=== PATIENT | male | born 2000 | race Caucasian/White ===

== ENCOUNTER 2025-09-21 22:11 | Emergency (ER) | payer BC, OTHER ==
[~2025-09-21] VITALS: Ht 170.2 cm; Wt 68.0 kg
[2025-09-21 22:53] VITALS: TEMP 97.9
[2025-09-21] MEDS ORDERED: ACETAMINOPHEN 325 MG TABLET ONE (23:28)
[2025-09-21] MEDS: ACETAMINOPHEN 325 MG TABLET PO ONE (23:32)
[2025-09-22] MEDS ORDERED: LIDOCAINE 2% 20 ML MDV ONE (00:01)
[2025-09-22] MEDS: LIDOCAINE 2% 20 ML MDV TP ONE (00:01)
[2025-09-22] MEDS ORDERED: LIDOCAINE 1% INJ 50 ML MDV IJ ONE (00:55)
[2025-09-22] MEDS ORDERED: CEFA500C PO (01:29)
[2025-09-22 01:35] VITALS: BP 124/75; O2SAT 98
== END 2025-09-22 01:35 | disposition home or self-care (01) ==
LOC: ER 22:17
DX: S61.511A Laceration without foreign body of right wrist, initial encounter (principal); S61.214A Laceration without foreign body of right ring finger without damage to nail, initial encounter; Z91.048 Other nonmedicinal substance allergy status; W25.XXXA Contact with sharp glass, initial encounter; Y93.89 Activity, other specified; Y92.89 Other specified places as the place of occurrence of the external cause; Y99.8 Other external cause status
CPT/HCPCS: 12002; 73110; 73140; 99284; J3490